=== PATIENT | female | born 1950 | race Caucasian/White ===

== ENCOUNTER 2016-06-01 09:26 | Emergency (ER) | payer OTHER ==
[~2016-06-01] VITALS: Ht 157.5 cm; Wt 77.6 kg
[2016-06-01 10:20] VITALS: BP 135/93
== END 2016-06-01 10:20 | disposition home or self-care (01) ==
LOC: ED 09:26
DX: B34.9 Viral infection, unspecified (principal); I10 Essential (primary) hypertension; E03.9 Hypothyroidism, unspecified; Z88.8 Allergy status to other drugs, medicaments and biological substances
CPT/HCPCS: Q0092

== ENCOUNTER 2016-06-08 04:42 | Emergency (ER) | payer OTHER ==
[2016-06-08 05:26] LABS: BASOPHIL % 0.4 % (0-2); PLATELET COUNT 148 x10^3mcL (130-400); RED CELL DISTRIBUTION WIDTH 13.6 % (11.5-14.5)
[2016-06-08 06:00] LABS: CARBON DIOXIDE 26.5 mmol/L (21-32); CHLORIDE SERUM 104 mmol/L (98-107); CREATININE SERUM 0.8 mg/dL (0.6-1.0); GFR1 > 60 mL/min; GLUCOSE SERUM 107 mg/dL (74-106); POTASSIUM SERUM 3.8 mmol/L (3.5-5.1); SODIUM SERUM 142 mmol/L (136-145)
[2016-06-08 06:05] LABS: ALBUMIN 4.1 g/dL (3.4-5.0); ALKALINE PHOSPHATASE 61 U/L (46-116); ALT/SGPT 35 U/L (14-59); AST/SGOT 35 U/L (15-37); BILIRUBIN TOTAL 0.3 mg/dL (0.20-1.00)
[2016-06-08 06:15] VITALS: BP 158/76
== END 2016-06-08 06:15 | disposition home or self-care (01) ==
LOC: ED 04:42
PROVIDERS: Emergency Medicine
DX: J20.9 Acute bronchitis, unspecified (principal)
CPT/HCPCS: 83880; J7620; Q0092

== ENCOUNTER 2016-11-05 08:26 | Emergency (ER) | payer OTHER ==
[~2016-11-05] VITALS: Ht 152.4 cm; Wt 79.9 kg
[2016-11-05 09:20] LABS: BASOPHIL % 0.2 % (0-2); PLATELET COUNT 188 x10^3mcL (130-400); RED CELL DISTRIBUTION WIDTH 13.8 % (11.5-14.5)
[2016-11-05 09:26] LABS: microscopic required? YES; urine erythrocyte 3+ (NEGATIVE)
[2016-11-05 09:29] LABS: CALCIUM 9.4 mg/dL (8.5-10.1); CARBON DIOXIDE 26.2 mmol/L (21-32); CHLORIDE SERUM 103 mmol/L (98-107); CREATININE SERUM 0.9 mg/dL (0.6-1.0); GFR1 > 60 mL/min; GLUCOSE SERUM 122 mg/dL (74-106); POTASSIUM SERUM 4.3 mmol/L (3.5-5.1); SODIUM SERUM 138 mmol/L (136-145)
[2016-11-05 09:33] LABS: ALBUMIN 4.3 g/dL (3.4-5.0); ALKALINE PHOSPHATASE 56 U/L (46-116); ALT/SGPT 37 U/L (14-59); AST/SGOT 26 U/L (15-37); BILIRUBIN TOTAL 0.36 mg/dL (0.20-1.00); LIPASE 131 IU/L (73-393); TRIGLYCERIDES 151 mg/dL (<150)
[2016-11-05 09:34] LABS: CHOLESTEROL 307 mg/dL (<200); CHOLESTEROL/HDL RATIO 3.8; HDL CHOLESTEROL 81 mg/dL (40-60)
[2016-11-05 09:41] LABS: T3 TOTAL 0.85 ng/mL
[2016-11-05 09:44] LABS: FREE T4 1.5 ng/dL (0.76-1.46)
[2016-11-05 09:47] LABS: FREE THYROXINE INDEX 5.4 ug/dL (1.4-4.5); T4(THYROXINE) 14.7 ug/dL (4.7-13.3)
[2016-11-05 12:34] VITALS: BP 155/68
== END 2016-11-05 12:34 | disposition home or self-care (01) ==
LOC: ED 08:26
PROVIDERS: Specialist
DX: N23 Unspecified renal colic (principal); I10 Essential (primary) hypertension; E66.9 Obesity, unspecified; E03.9 Hypothyroidism, unspecified; Z90.49 Acquired absence of other specified parts of digestive tract; Z90.89 Acquired absence of other organs
CPT/HCPCS: 83880; 84439; J2405; J3010; J7030

== ENCOUNTER 2016-12-27 08:48 | Emergency (ER) | payer OTHER ==
[2016-12-27 08:59] VITALS: BP 175/95
== END 2016-12-27 09:58 | disposition home or self-care (01) ==
LOC: ED 08:48
DX: B02.9 Zoster without complications (principal); I10 Essential (primary) hypertension; E03.9 Hypothyroidism, unspecified; Z90.49 Acquired absence of other specified parts of digestive tract; Z90.89 Acquired absence of other organs

== ENCOUNTER 2017-01-06 18:42 | Emergency (ER) | payer OTHER ==
[~2017-01-06] VITALS: Ht 157.5 cm; Wt 78.9 kg
[2017-01-06 18:43] VITALS: BP 154/99
== END 2017-01-06 20:59 | disposition home or self-care (01) ==
LOC: ED 18:42
DX: B02.9 Zoster without complications (principal); I10 Essential (primary) hypertension; Z88.6 Allergy status to analgesic agent
CPT/HCPCS: J2270; Q0162

== ENCOUNTER 2017-10-04 11:05 | Emergency (ER) | payer OTHER ==
[~2017-10-04] VITALS: Ht 154.9 cm; Wt 79.8 kg
[2017-10-04 11:14] VITALS: BP 172/96; Ht 154.9 cm; Wt 79.8 kg
== END 2017-10-04 12:25 | disposition home or self-care (01) ==
LOC: ED 11:05
DX: S00.412A Abrasion of left ear, initial encounter (principal); I10 Essential (primary) hypertension; E03.9 Hypothyroidism, unspecified; Z90.49 Acquired absence of other specified parts of digestive tract; Z88.6 Allergy status to analgesic agent; Z90.89 Acquired absence of other organs; X58.XXXA Exposure to other specified factors, initial encounter; Y93.89 Activity, other specified; Y92.89 Other specified places as the place of occurrence of the external cause; Y99.8 Other external cause status

== ENCOUNTER 2017-10-29 08:42 | Emergency (ER) | payer OTHER ==
[~2017-10-29] VITALS: Ht 160 cm; Wt 76.7 kg
[2017-10-29 08:50] VITALS: Ht 160 cm; Wt 76.7 kg
[2017-10-29 10:59] VITALS: BP 164/76
== END 2017-10-29 10:59 | disposition home or self-care (01) ==
LOC: ED 08:42
DX: S30.0XXA Contusion of lower back and pelvis, initial encounter (principal); Z88.6 Allergy status to analgesic agent; I10 Essential (primary) hypertension; I49.9 Cardiac arrhythmia, unspecified; E03.9 Hypothyroidism, unspecified; Z90.89 Acquired absence of other organs; Z90.49 Acquired absence of other specified parts of digestive tract; W18.11XA Fall from or off toilet without subsequent striking against object, initial encounter; Y93.89 Activity, other specified; Y92.89 Other specified places as the place of occurrence of the external cause; Y99.8 Other external cause status